=== PATIENT | male | born 1960 ===

== ENCOUNTER 2017-12-29 09:43 | Emergency (ER) | payer OTHER ==
[2017-12-29] MEDS ORDERED: Sodium Chloride 0.9% 1,000 ML IV ONE (09:45)
[2017-12-29] MEDS ORDERED: Aspirin 81 MG Tab.Chew PO ONE (09:45)
--- NOTE | 2017-12-29 09:46 | EDM.PDOC ---
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 He is asymptomatic at current that over the last several months he has been walking across the shop on level ground and after a distance of 100-200 feet he will become significantly short of breath and diaphoretic, similar symptoms will develop with shoveling material or going upstairs. He has no associated chest pain but feels if he is not getting oxygen and becomes very sweaty with extremities feeling heavy he remains still for some time or sits down and symptoms alleviate At current at rest no fever nausea vomiting diarrhea constipation chest pain shortness breath headache dizziness or palpitation no bowel or urine symptoms ] His employer is urged him to be evaluated Review of systems: As per history of present illness and below otherwise all systems reviewed and negative. Past medical history: As per history of present illness and as reviewed below otherwise noncontributory. Surgical history: As per history of present illness and as reviewed below otherwise noncontributory. Social history: No reported history of drug or alcohol abuse. Family history: As per history of present illness and as reviewed below otherwise noncontributory. Physical exam: HEENT: Atraumatic, normocephalic, pupils reactive, negative for conjunctival pallor or scleral icterus, mucous membranes moist, throat clear, neck supple, nontender, trachea midline. Lungs: Clear to auscultation, breath sounds equal bilaterally, chest nontender. Heart: S1S2, regular, negative for clicks, rubs, or JVD. Abdomen: Soft, nondistended, nontender. Negative for masses or hepatosplenomegaly. Negative for costovertebral tenderness. Pelvis: Stable nontender. Genitourinary: Deferred. Rectal: Deferred. Extremities: Atraumatic, negative for cords or calf pain. Neurovascular unremarkable. Neuro: Awake, alert, oriented. Cranial nerves II through XII unremarkable. Cerebellum unremarkable. Motor and sensory unremarkable throughout. Exam nonfocal. Diagnostics: [CBC CMP UA troponin chest 1 view EKG ] Therapeutics: [Normal saline bolus Aspirin 324 mg chewable ] Patient is referred to cardiology for Sunday for consideration of stress testing and/or evaluate and treat I've recommended off work in no strenuous activity and health cardiology follow- up Impression: Rule out coronary artery disease [Mild dehydration Nicotine dependence ] Definitive disposition and diagnosis as appropriate pending reevaluation and review of above. - Related Data Allergies Allergy/AdvReac Type Severity Reaction Status Date / Time No Known Allergies Allergy Verified 12/29/17 09:52 Home Meds: Home Meds Inhaler 12/29/17 [History] ED ROS GENERAL - Review of Systems Review Of Systems: See Below ED EXAM, GENERAL - Physical Exam Exam: See Below Course - Vital Signs Last Recorded V/S: Last Vital Signs Temp 96.3 F 12/29/17 09:52 Pulse 73 12/29/17 09:52 Resp 18 12/29/17 09:52 BP 171/108 H 12/29/17 09:52 Pulse Ox 96 12/29/17 09:52 - Orders/Labs/Meds Orders: Active Orders 24 hr Category Date Time Status EKG Documentation Completion [RC] STAT Care 12/29/17 09:45 Active RT Aerosol Therapy [RC] ASDIRECTED Care 12/29/17 09:54 Active Chest 1V Frontal [CR] Stat Exams 12/29/17 09:45 Ordered Labs: Laboratory Tests 12/29/17 12/29/17 12/29/17 Range/Units 09:58 09:58 09:58 WBC 6.36 (4.0-11.0) K/uL RBC 4.63 (4.50-5.90) M/uL Hgb 14.0 (13.0-17.0) g/dL Hct 40.7 (38.0-50.0) % MCV 87.9 (80.0-98.0) fL MCH 30.2 (27.0-32.0) pg MCHC 34.4 (31.0-37.0) g/dL RDW Std Deviation 45.6 (28.0-62.0) fl RDW Coeff of Sola 14 (11.0-15.0) % Plt Count 204 (150-400) K/uL MPV 10.30 (7.40-12.00) fL Neut % (Auto) 64.1 (48.0-80.0) % Lymph % (Auto) 23.1 (16.0-40.0) % Trigg % (Auto) 5.3 (0.0-15.0) % Eos % (Auto) 6.6 (0.0-7.0) % Baso % (Auto) 0.9 (0.0-1.5) % Neut # (Auto) 4.1 (1.4-5.7) K/uL Lymph # (Auto) 1.5 (0.6-2.4) K/uL Trigg # (Auto) 0.3 (0.0-0.8) K/uL Eos # (Auto) 0.4 (0.0-0.7) K/uL Baso # (Auto) 0.1 (0.0-0.1) K/uL Nucleated RBC % 0.0 /100WBC Nucleated RBCs # 0 K/uL INR 1.02 Sodium 144 (136-148) mmol/L Potassium 3.8 (3.5-5.1) mmol/L Chloride 108 H (98-107) mmol/L Carbon Dioxide 27.6 (21.0-32.0) mmol/L BUN 24 H (7.0-18.0) mg/dL Creatinine 1.4 H (0.8-1.3) mg/dL Est Cr Clr Drug Dosing 60.51 mL/min Estimated GFR (MDRD) 51.9 ml/min Glucose 143 H (74-106) mg/dL Calcium 8.5 (8.5-10.1) mg/dL Total Bilirubin 0.4 (0.2-1.0) mg/dL AST 20 (15-37) IU/L ALT 32 (14-63) IU/L Alkaline Phosphatase 83 (46-116) U/L Troponin I < 0.050 (0.000-0.056) ng/mL Total Protein 6.9 (6.4-8.2) g/dL Albumin 3.9 (3.4-5.0) g/dL Globulin 3.0 (2.0-3.5) g/dL Albumin/Globulin Ratio 1.3 (1.3-2.8) Lipase 88 (73-393) U/L Meds: Medications Discontinued Medications Generic Name Dose Route Start Last Admin Trade Name Joeyq PRN Reason Stop Dose Admin Albuterol/Ipratropium 3 ml 12/29/17 09:54 12/29/17 10:08 Duoneb 3.0-0.5 Mg/3 Ml NEB 12/29/17 09:55 3 ml ONETIME ONE Administration Aspirin 324 mg 12/29/17 09:45 12/29/17 10:31 Aspirin PO 12/29/17 09:46 324 mg ONETIME ONE Administration Sodium Chloride 1,000 mls @ 999 mls/hr 12/29/17 09:45 12/29/17 10:32 Normal Saline IV 12/29/17 10:45 999 mls/hr STAT ONE Administration Departure - Departure Time of Disposition: 11:00 Disposition: Home, Self-Care 01 Condition: Good Clinical Impression: Encounter for medical screening examination - Discharge Information Additional Instructions: Cardiology referral provided for Sunday No work or exertional activity until follow-up with cardiology Return if symptoms persist or worsen or new concerning symptoms develop in the interim [facility] Primary Care - Non-Interventional Cardiology [address] [place] [address] [facility] - Primary Care [address] [place] [address] The following information is given to patients seen in the emergency department who are being discharged to home. This information is to outline your options for follow-up care. We provide all patients seen in our emergency department with a follow-up referral. The need for follow-up, as well as the timing and circumstances, are variable depending upon the specifics of your emergency department visit. If you don't have a primary care physician on staff, we will provide you with a referral. We always advise you to contact your personal physician following an emergency department visit to inform them of the circumstance of the visit and for follow-up with them and/or the need for any referrals to a consulting specialist. The emergency department will also refer you to a specialist when appropriate. This referral assures that you have the opportunity for follow-up care with a specialist. All of these measure are taken in an effort to provide you with optimal care, which includes your follow-up. Under all circumstances we always encourage you to contact your private physician who remains a resource for coordinating your care. When calling for follow-up care, please make the office aware that this follow-up is from your recent emergency room visit. If for any reason you are refused follow-up, please contact the [facility] emergency department at and asked to speak to the emergency department charge nurse. - My Orders Last 24 Hours: My Active Orders 12/29/17 09:45 EKG Documentation Completion [RC] STAT Chest 1V Frontal [CR] Stat 12/29/17 09:54 RT Aerosol Therapy [RC] ASDIRECTED - Assessment/Plan Last 24 Hours: My Active Orders 12/29/17 09:45 EKG Documentation Completion [RC] STAT Chest 1V Frontal [CR] Stat 12/29/17 09:54 RT Aerosol Therapy [RC] ASDIRECTED
[2017-12-29] MEDS ORDERED: Albuterol/Ipratropium 3.0-0.5 MG/3 ML Neb Soln NEB ONE (09:54)
[2017-12-29 10:37] LABS: CHLORIDE,CL 108 mmol/L (98-107); SODIUM,NA 144 mmol/L (136-148)
--- NOTE | 2017-12-31 08:54 | CR ---
EXAM DATE: 12/29/17 PATIENT'S AGE: 57 Patient: JOSE L GONZALEZ Facility: [place], [place] Site . Site : [id number] Study: XRay Chest [id number]/[id number] 12:23:17 PM Ordering Physician: Yina Javier Final Report: INDICATION: Pain shortness of breath TECHNIQUE: Single view chest. FINDINGS: The lungs are clear. The heart, mediastinum and pulmonary vessels are of normal size. There is no evidence of pleural disease. IMPRESSION: Negative chest. Dictated by Nicole Knapp MD @ Dec 29 2017 12:45PM (Electronic Signature) Report Signed by Proxy. ARNULFO
== END 2017-12-29 11:15 | disposition home or self-care (01) ==
LOC: MW.ED 09:43
DX: E86.0 Dehydration (principal); R06.02 Shortness of breath; F17.210 Nicotine dependence, cigarettes, uncomplicated
CPT/HCPCS: 71045; 80053; 83690; 84484; 85025; 85610; 93005; 94640; 96360; 99285; A9270; J7040; 99283